=== PATIENT | female | born 1950 | race Hispanic/Latino ===

== ENCOUNTER 2018-07-04 11:08 | Observation (INO) | payer OTHER, MEDICARE ==
[2018-07-03 13:14] VITALS: BMI 28.6
[2018-07-04 11:59] LABS: BASO # 0.1 K/uL (0.0-0.2); BASO % 0.4 % (0.0-2.0); EOS # 0.1 K/uL (0.0-0.7); EOS % 0.5 % (0.0-4.0); HEMOGLOBIN 13.9 g/dL (11.0-16.0); LYMPH # 1.8 K/uL (1.0-4.3); LYMPH % 15.4 % (20.0-40.0); MEAN CELL VOLUME 85.7 fL (81.0-99.0); MEAN CORPUSCULAR HEMOGLOBIN 28.6 pg (27.0-31.0); MEAN CORPUSCULAR HGB CONC 33.3 g/dL (33.0-37.0); MEAN PLATELET VOLUME 8.1 fL (7.2-11.7); MONO # 0.6 K/uL (0.0-0.8); MONO % 4.8 % (0.0-10.0); NEUT # 9.3 K/uL (1.8-7.0); NEUT % 78.9 % (50.0-75.0); RBC 4.88 Mil/uL (3.80-5.20); RED CELL DISTRIBUTION WIDTH 14.5 % (11.5-14.5); WHITE BLOOD COUNT 11.8 K/uL (4.8-10.8)
[2018-07-04 12:10] LABS: BLOOD UREA NITROGEN 12 mg/dL (7-17); CALCIUM 9.5 mg/dl (8.6-10.4); GFR NON-AFRICAN AMERICAN > 60
[2018-07-04] MEDS ORDERED: Midazolam 2 MG/2 ML VIAL ONE (13:05)
[2018-07-04] MEDS ORDERED: Propofol 10 mg/ml Inj (20 ML) ONE (13:05)
[2018-07-04] MEDS ORDERED: Lidocaine Hydrochloride 20 ML INJ ONE (13:10)
[2018-07-04] MEDS ORDERED: ceFAZolin 1 gm in NS 2 GM/200 ML BAG IVPB ONE (13:10)
[2018-07-04] MEDS ORDERED: Bupivacaine HCl 0.25% PF (10 ml) Inj ONE (13:10)
[2018-07-04] MEDS ORDERED: Bupivacaine 0.25% 20 ML INJ IJ ONE (15:08)
[2018-07-04] MEDS ORDERED: Morphine 4 MG/ML VIAL ONE (15:28)
[2018-07-04] MEDS ORDERED: HYDROmorphone 0.5 mg/0.5 ml ISec IVP PRN (15:44)
--- NOTE | 2018-07-04 15:56 | PCM.SURG1 ---
Surgeon's Initial Post Op Note - Surgeon's Notes Surgeon: Dr. Frazier Auto Radiator Specialist: Dr. Gillespie PGY-3, Dr. Nazario PGY-2 Type of Anesthesia: General LMA, Local Anesthesia Administered By: Dr. Stock Pre-Operative Diagnosis: right ankle displaced bimalleolar fracture Operative Findings: see dictation. synthes fibular plate and screws. 4.5 cannulated synthes screw. 2-0 3-0 4-0 vicryl, 4-0 prolene Post-Operative Diagnosis: same Operation Performed: right ankle ORIF Specimen/Specimens Removed: none Estimated Blood Loss: EBL {In ML}: 20 Blood Products Given: N/A Drains Used: No Drains Post-Op Condition: Good Date of Surgery/Procedure: 07/04/18 Time of Surgery/Procedure: 15:56
[2018-07-04] MEDS ORDERED: Oxycodone/Acetaminophen 5/325 mg Tab PO PRN ×2 (15:57)
--- NOTE | 2018-07-04 17:32 | RAD ---
Date of service: 07/04/2018 PROCEDURE: Right ankle HISTORY: s/p right ankle keith ORIF COMPARISON: None TECHNIQUE: Standard protocol for this study/examination. FINDINGS: Major fracture fragments are anatomically aligned. No evidence of orthopedic hardware failure. IMPRESSION: Satisfactory postoperative status. Limitations of the current study: Detail obscured by overlying fiberglass cast.
[2018-07-04] MEDS: Lactated Ringer's 1,000 ML IV SCH (17:43)
[2018-07-04 17:47] VITALS: RESP 20
[2018-07-05] MEDS: Lactated Ringer's 1,000 ML IV SCH (04:44)
[2018-07-05 06:07] VITALS: O2SAT 95
[2018-07-05 08:16] VITALS: BP 144/76; PULSE 66; TEMP 97.9
--- NOTE | 2018-07-05 09:48 | RAD ---
Date of service: 07/05/2018 PROCEDURE: Left Foot Radiographs. HISTORY: left 4th and 5th digit pain COMPARISON: None. FINDINGS: BONES: No acute fracture or destructive bony lesion identified. JOINTS: Diffuse cortical thickening seen throughout the forefoot midfoot and hindfoot joints without osteophyte development or prominent joint space narrowing. Mild osteoarthritis is identified. No subluxation or dislocation. SOFT TISSUES: Normal. OTHER FINDINGS: None. IMPRESSION: Degenerative joint changes seen diffusely throughout the left foot without fracture, dislocation or destructive bony lesion appreciated including the left 4th and 5th digits.
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
--- NOTE | 2018-07-05 16:25 | CARD ---
APPROVED REPORT Date of service: 07/04/2018 EKG Measurement Heart [id number] <Conclusion> Normal sinus rhythm Poor R wave progression Borderline EKG
[2018-07-06] MEDS ORDERED: Influenza Vaccine 60 MCG/0.5 ML SYR (3 yr & up) IM ONE (10:00)
--- NOTE | 2018-07-06 21:07 | OP ---
PROCEDURE DATE: 07/04/2018 PREOPERATIVE DIAGNOSIS: Right ankle displaced bimalleolar fracture. POSTOPERATIVE DIAGNOSIS: Right ankle displaced bimalleolar fracture. PROCEDURE PERFORMED: Right ankle open reduction with internal fixation. SURGEON: Donnie Matthews DPM. WEATHERIZATION FIELD TECHNICIAN: Ellen Gillespie DPM, PGY-3; Gayle Nazario DPM, PGY-2. NETWORK OPERATIONS ANALYST: Dr. Stock. ANESTHESIA: General. INDICATION: The patient is a 67-year-old female with the above-mentioned diagnosis. The patient requested surgical intervention at this time. The patient signed the consent after careful explanation of risks, benefits, complications, and alternatives for surgical procedure. No guarantees were given nor implied. N.p.o. status was confirmed prior to bringing the patient into the operating room. PREPARATION: The patient was brought into the operating room and placed in the operating room table in supine position. Time-out was performed for identification of the correct patient and procedure. A well padded pneumatic thigh tourniquet was placed to the patient's right thigh in a supramalleolar position. After induction of general anesthesia, the right leg was prepped and draped in normal sterile manner. A thigh tourniquet was then inflated to 350 mmHg, and the procedure began. DESCRIPTION OF PROCEDURE: Attention was directed to the lateral aspect of the right ankle where the fracture was present. At this time, via the use of a #15 blade, a 7 cm linear incision was created over the lateral aspect of the fibular of the right lower extremity. Incision was carried from proximal to distal to the level of the malleolus. Upon completion of the incision, all the neurovascular structures and capsular were retraced, ligated necessary. A sharp dissection was carried from the dermal layers to the periosteum without soft tissue dissection. At this time via the use of pascual elevator, the periosteum was dissected free of its osseous attachment and a spiral oblique fracture was noted to be present, starting at the level of the ankle joint and extending proximally. Upon dissection of the surrounding soft tissue on the fracture site, the fracture fragment was distracted distally and a bone curette was utilized to clean and remove hemorrhagic tissue and coagulated blood from the fracture site. The surgical site were then copiously irrigated with sterile normal saline. At this time, with the use of a bone clamp and distal proximal distraction, the fracture was then placed in an anatomical corrected position, with noted increased length to the fibula and rastafarian of the ankle mortise upon performing this procedure. Upon establishment of the correct length of the fibular fracture, the fracture was clamped with a bone clamp. At that time, a Synthes 2.7 mm lag screw was placed across the fracture site from anterior to posterior in order to allow from interfragmentary screw fixation. Upon completion of this, the bone clamp was removed. It was noted that the fixation have been achieved across the fracture site. At this time, a Synthes navicular plate was utilized to the lateral aspect of the fibula which was fixated with the use of 3.5 mm Synthes screw proximally to the fracture site and 2.7 mm screws distally, both locking and non-locking. Fixed screws were utilized at this time. Upon completion of the fibular reduction and fixation, the surgical site was then copiously irrigated with sterile normal saline. At this time, attention was directed to the level of the medial aspect of the right ankle, at the level of the medial malleolus where a distal displaced malleolar fracture site present. At this time via the use of a #15 blade, a linear incision was created from superior to inferior possibly 5 cm in length. The incision was directed from the dermal layer to the underlying periosteum, and upon completion of the subcutaneous incision, a pascual elevator was utilized to free the underlying osseous fracture site. At this time, it was noted that the medial malleolus was substantially fractured and displaced. At this time via the use of a bone curette, the coagulated blood and fibrosis was removed from the fracture site and the right ankle was copiously irrigated with sterile normal saline. At this time, the medial malleolus was placed in an anatomical reduced position with the use of a bone clamp, temporarily fixated with the use of a cannulated screw guide. C-arm was utilized at this time for adequate position of the medial malleolus. At this time, via the use AO principles and technique, a 4.5 mm screw measuring 36 mm in length was inserted into the medial malleolus fracture site. Upon removal of the guide wire, it was noted that good fixation have been achieved with the 4.5 mm screw under C-arm guidance. The surgical site was then copiously irrigated with normal sterile saline. Attention was brought back to the lateral aspect of the right lower extremity, and under C-arm guidance, an Arthrex tightrope was placed through the fibular plate across to the medial aspect of the tibia just above the fractures and syndesmotic site. Using standard principles and technique, the tightrope was then tightened down with excellent compression noted across the syndesmosis and confirmed under C-arm guidance. Incision site was then again flushed with copious amounts of normal sterile saline. At this time, via the use of Vicryl, the periosteal and each subcutaneous tissues, both medially and laterally were reapproximated in simple suture pattern. Next, via the use of 4-0 Vicryl, the subcutaneous tissue was reapproximated for both medial and lateral incision sites. Next, the skin was reapproximated with 4-0 nylon. Postoperative dressing included Xeroform, 4 x 4, gauze, Lindy, and a posterior splint. POSTOPERATIVE CONDITION: The patient tolerated the anesthesia and the procedure well and was escorted to the recovery room with vital signs stable and neurovascular status intact with the right lower extremity. The patient will follow up with Dr. Matthews in his office on an outpatient basis. Ellen Gillespie DPM Donnie Matthews DPM
== END 2018-07-05 13:31 | disposition home or self-care (01) ==
LOC: C.SDS 11:08 → C.9S 16:00 → C.6T 17:12
PROVIDERS: ADMIT Podiatrist Foot & Ankle Surgery; ATTEND Podiatrist Foot & Ankle Surgery
DX: S82.841A Displaced bimalleolar fracture of right lower leg, initial encounter for closed fracture (principal); V48.4XXA Person boarding or alighting a car injured in noncollision transport accident, initial encounter
CPT/HCPCS: 27814; 36415; 73610; 73630; 80048; 85025; 88304; 88311; 93005; C1713; C1769; G0378; J0690; J1100; J1170; J2250; J2270; J2704; J3010